=== PATIENT | male | born 1970 | race Caucasian/White ===

== ENCOUNTER 2021-11-13 00:48 | Day surgery (SDC) | payer BC, SELFPAY ==
[2021-11-01 14:13] VITALS: BMI 35.7
--- NOTE | 2021-11-12 14:33 | PM.HPGS ---
History of Present Illness History of Present Illness Consent: Risks, benefits, and alternatives have been discussed and questions answered. Patient agrees to proceed with procedure. Chief complaint: neoplasm screening Narrative: Sathish Pimentel is a 51 year old male who was referred for colon cancer screening. Review of Systems Review of Systems: All systems reviewed & are unremarkable except as noted in HPI and below PMFSH Past Medical History Medical History BMI 35.0-35.9,adult BMI 36.0-36.9,adult Colon cancer screening COVID-19 Diabetes mellitus Elevated BP without diagnosis of hypertension Encounter to establish care Hyperlipidemia Hypertension Lump of skin of right lower extremity Prostate cancer screening Sinus congestion Surgical History Surgical History History of ankle surgery 2012 Family History Family History Father Cerebrovascular accident Mother Diabetes mellitus Hypertension Depression Sibling Diabetes mellitus Hypertension Social History Social History Smoking status: Never smoker Tobacco type: cigars Alcohol intake: current Drinks per week: 4 Substance use: never Substance use type: does not use Living arrangements: with family Spiritual care concerns: No Meds Home Medications and Allergies Home Medications Medication Instructions Recorded Confirmed Type atorvastatin 10 mg tablet 10 mg PO DAILY #90 tabs 05/15/21 11/01/21 Rx lisinopril 20 mg tablet 20 mg PO DAILY #90 tabs 05/15/21 11/01/21 Rx metformin 500 mg tablet,extended 1,000 mg PO DAILY 11/01/21 11/01/21 History release 24 hr Allergies Allergy/AdvReac Type Severity Reaction Status Date / Time No Known Allergies Allergy Mild Verified 11/13/21 07:02 Exam Const: Nutritional Appearance: obese Resp: Auscultation: clear to auscultation bilaterally Cardio: Rate: regular rate Rhythm: regular rhythm GI: GI Palp: Yes Soft to palpation and No Tenderness to palpation present (GI) Assessment and Plan Assessment and plan (1) Colon cancer screening: Code(s): Z12.11 - Encounter for screening for malignant neoplasm of colon Status: Acute Assessment and Plan: Colonoscopy with possible biopsy or polypectomy or cautery or injection of substances.
[2021-11-13 07:04] VITALS: BP 125/84; PULSE 78; RESP 20; TEMP 36.3; O2SAT 100
[2021-11-13 07:16] LABS: Glucose Point of Care 113 mg/dl (65-105)
[2021-11-13] MEDS: LACTATED RINGERS 1,000 ML 150 ML IV CONT (07:19)
--- NOTE | 2021-11-13 07:23 | WPDANESEPPF ---
Anes - Initial Pre Proc Eval Procedure: Operation Date: 11/13/21 08:00 Proposed Procedures p Screening Colonoscopy - Dalton Lamb MD Date/Time: 11/13/21 07:23 Surgeon: Dalton Lamb MD Pre Op Diagnosis: neoplasm screening Patient Data Age: 51 Gender: M Height: 1.78 m Weight: 112.9 kg Last Vital Signs Temp 36.3 C L 11/13/21 07:04 Pulse 78 11/13/21 07:04 Resp 20 11/13/21 07:04 BP 125/84 11/13/21 07:04 Pulse Ox 100 11/13/21 07:04 O2 Del Method Room Air 11/13/21 07:04 Allergies Allergy/AdvReac Type Severity Reaction Status Date / Time No Known Allergies Allergy Mild Verified 11/13/21 07:02 Home Medications Medication Instructions Recorded Confirmed Type atorvastatin 10 mg tablet 10 mg PO DAILY #90 tabs 05/15/21 11/01/21 Rx lisinopril 20 mg tablet 20 mg PO DAILY #90 tabs 05/15/21 11/01/21 Rx metformin 500 mg tablet,extended 1,000 mg PO DAILY 11/01/21 11/01/21 History release 24 hr Laboratory Tests 11/13/21 07:14 POC Capillary Glucose 113 mg/dl H mg/dl (65-105) Patient hx anesthesia problems: none Family hx anesthesia problems: none Results Review: All pre-operative results and documents have been reviewed as part of the pre-operative evaluation. [facility] Past Medical History Medical History (Updated 09/18/21 @ 14:40 by Monica Sarabia NP) BMI 35.0-35.9,adult BMI 36.0-36.9,adult Colon cancer screening COVID-19 Diabetes mellitus Elevated BP without diagnosis of hypertension Encounter to establish care Hyperlipidemia Hypertension Lump of skin of right lower extremity Prostate cancer screening Sinus congestion Surgical History Surgical History History of ankle surgery 2012 Family History Family History Father Cerebrovascular accident Mother Diabetes mellitus Hypertension Depression Sibling Diabetes mellitus Hypertension Social History Social History (Updated 09/18/21 @ 14:01 by Ann Plata MA) Smoking status: Never smoker Tobacco type: cigars Alcohol intake: current Drinks per week: 4 Substance use: never Substance use type: does not use Living arrangements: with family Spiritual care concerns: No Anes - Eval Final PreProcedure Day of Procedure 11/13/21 07:23 Patient weight: obese Heart: regular rate and rhythm Lungs: clear to auscultation and normal air movement Airway: Mallampati scale class II Neurological: alert and oriented Last oral intake: >/= 8 hours ASA classification: III Emergent: no Anesthetic plan: proceed Anesthesia type and monitoring: general GIVS Results Review: All pre-operative results and documents have been reviewed as part of the pre-operative evaluation. Informed Consent: The patient's anesthetic plan and its attendant risks and benefits were discussed with the patient/family/POA. Questions were solicited and answers provided to the satisfaction of the patient/family/POA.
[2021-11-13] MEDS: SIMETHICONE ORAL SUSPENSION 20 MG/0.3 ML 30 ML BOTTLE 0.6 ML IRRIGATION (08:02)
[2021-11-13 08:11] VITALS: BP 107/66; PULSE 87; RESP 21; O2SAT 99
[2021-11-13 08:21] VITALS: BP 106/71; PULSE 86; RESP 18; O2SAT 99
[2021-11-13 08:31] VITALS: BP 139/81; PULSE 74; RESP 19; O2SAT 100
== END 2021-11-13 08:34 | disposition home or self-care (01) ==
PROVIDERS: PCP Family Medicine; Visit Provider Internal Medicine Gastroenterology
PROC: 0DJD8ZZ Inspection of Lower Intestinal Tract, Via Natural or Artificial Opening Endoscopic (ICD-10-PCS; CPT 45378; principal; 2021-11-13 08:00)
DX: Z12.11 Encounter for screening for malignant neoplasm of colon (principal); Z79.84 Long term (current) use of oral hypoglycemic drugs; Z86.16 Personal history of COVID-19; E11.9 Type 2 diabetes mellitus without complications; I10 Essential (primary) hypertension; E78.5 Hyperlipidemia, unspecified; E66.9 Obesity, unspecified; Z68.35 Body mass index [BMI] 35.0-35.9, adult
CPT/HCPCS: 45378; 82948; J2704; J7120